=== PATIENT | female | born 1935 | race Caucasian/White ===

== ENCOUNTER → 2016-08-05 | Outpatient (CLI) | payer MEDICARE ==
[~2016-08-05] MED LIST: ALEVE; AMLO5TAB5 PO; ATEN50TA PO; ATENOLOL; Amlodipine Besylate PO; CEPH-38 PO; CHOL100048 PO; CRB200T PO; CYAN10006 PO; FEXO180T84 PO; GABA-486 PO; HYDR-3812 PO; KRIL1CAP PO; LEVO50TA PO; LEVOTHYROXIN; LISI1TAB8 PO; MECL-124 PO; MULT-974 PO; NAPR220T76 PO; PANT40TA3 PO; PNT40TEC PO; Sucralfate PO; TRAM50TA2 PO; [UNRECOGNIZED DRUG - OTHER]; [UNRECOGNIZED DRUG - OTHER]; [UNRECOGNIZED DRUG - OTHER]
--- OUTSIDE RECORDS SUMMARY | 2016-08-05 09:08 | XMS REPORT | Continuity of Care Document ---
Author Author [facility] Organization [facility] Address Unknown Phone Unavailable Care Team Providers Care Medical Assistant Supervisor Name Role Phone SHALINI HUIZAR MD PCP Insurance Providers Payer Name Policy Number Subscriber Name Relationship Wps Medicare [id number] Lisa Ramos 19 Self / Same As Patient Blue Cross [facility] Supp [id number] Lisa Ramos 19 Self / Same As Patient Advance Directives Directive Response Recorded Date/Time Advance Directives Yes 12/16/15 10:28am Health Care Power of Production Miner Yes 12/16/15 10:28am Organ Donor No 12/16/15 [...] Reaction Status Last Updated Sulfa (Sulfonamide Antibiotics) ([id number]) Allergy Unknown Active Erythromycin base Allergy Unknown [...] 3.00 inches 12/16/2015 10:28am Height (Calculated Centimeters) 160.066012 cm 12/16/2015 10:28am Weight (Pounds) 186 pounds 12/16/2015 10:28am Weight (Ounces) 2.0 oz 12/16/2015 10:28am Weight (Calculated Grams) 06207.881 gm 12/16/2015 10:28am Weight (Calculated Kilograms) 84.723120 kilograms 12/16/2015 10:28am Calculated BMI 30.95 12/16/2015 10:28am Results No known relevant diagnostic tests, laboratory data and/or discharge summary. Procedures No known history of procedures. Encounters Encounter Location Arrival/Admit Date Discharge/Depart Date Attending Provider Registered Clinic [facility] 12/16/15 10:23am GERMÁN INFANTE MD
--- NOTE | 2016-08-05 11:56 | Diagnostic Imaging Report ---
Three views of the lumbar spine. INDICATION: Back pain. FINDINGS: There is a prominent lordotic curvature in the lumbar spine. There is grade 1 spondylolisthesis of L5 over S1. The vertebral body heights are preserved. There is moderate disc height loss at L3-L4 and severe disc height loss at the L4-L5 levels. Reactive endplate sclerotic changes and minimal anterior osteophytes are noted. No significant posterior osteophytes seen. There are sclerotic degenerative changes in the mid and lower lumbar spine facet joints. Surgical clips projecting anteriorly in the abdomen seen. IMPRESSION: Lower lumbar spine disc and facet degenerative changes. Dictated by: Dictated on workstation # [id number]
--- NOTE | 2016-08-05 12:02 | Diagnostic Imaging Report ---
Two views of the cervical spine. INDICATION: Neck pain. FINDINGS: There is straightening of the lordotic curvature of the cervical spine. The vertebral body heights are preserved. There is oupt-gp-yhxrizje disc height loss at all cervical spine levels. Slightly prominent posterior osteophytes at C4-C5 seen. Minimal posterior osteophytes at C5-C6. The alignment of the lateral masses of C1 and C2 appears satisfactory. There is suggestion of mild facet degenerative changes. The prevertebral soft tissues appear grossly unremarkable. IMPRESSION: Disc and facet degenerative changes seen. Dictated by: Dictated on workstation # [id number]
--- NOTE | 2016-08-05 12:23 | Diagnostic Imaging Report ---
Three views of the thoracic spine. INDICATION: Back pain. FINDINGS: The alignment of the posterior spinal line is satisfactory. The vertebral body heights appear preserved. There are multilevel mid thoracic spine anterior osteophytes and endplate sclerotic changes. No posterior osteophyte is identified. Thoracic aortic calcifications and ectasia seen and upper abdominal surgical sutures and retention clips noted. IMPRESSION: Mild degenerative changes. Dictated by: Dictated on workstation # [id number]
== END ==
LOC: RAD 09:03
PROVIDERS: ATTEND Pain Medicine Pain Medicine
DX: M54.2 Cervicalgia (principal); M54.6 Pain in thoracic spine; M54.5 Low back pain
CPT/HCPCS: 72040; 72072; 72100

== ENCOUNTER 2016-08-20 08:53 | Outpatient (RCR) | payer MEDICARE ==
--- OUTSIDE RECORDS SUMMARY | 2016-07-21 12:57 | XMS REPORT | Continuity of Care Document ---
Author Author [facility] Organization [facility] Address Unknown Phone Unavailable Care Team Providers Care Cannoneer Name Role Phone SHALINI HUIZAR MD PCP Insurance Providers Payer Name Policy Number Subscriber Name Relationship Wps Medicare [id number] Lisa Ramos 19 Self / Same As Patient Blue Cross [facility] Supp [id number] Lisa Ramos 19 Self / Same As Patient Advance Directives Directive Response Recorded Date/Time Advance Directives Yes 12/16/15 10:28am Health Care Power of Canvas Baster Jumpbasting Yes 12/16/15 10:28am Organ Donor No 12/16/15 10:28am Resuscitation Status Full Code 12/16/15 10:28am Problems Active Problems Medical Problem Onset Date Status Anemia Unknown Acute HTN (hypertension) Unknown Acute Hypertensive urgency Unknown Acute Hypertensive urgency Unknown Acute Hypertensive urgency Unknown Acute Symptomatic sinus bradycardia Unknown Acute Vertigo Unknown Acute Medications Current Home Medications Medication Dose Units Route Directions Days/Qty Instructions Start Date Levothyroxine Sodium 50 Mcg 50 Mcg Oral Daily 07/04/14 Multivitamin 1 Each 1 Tab Oral Daily 07/04/14 Cyanocobalamin 1,000 Mcg 1,000 Mcg Oral Daily 07/04/14 Amlodipine Besylate 5 Mg 5 Mg Oral Daily 07/20/14 Krill/Om3/Dha/Epa/Om6/Lip/Astx 1 Each 1,000 Mg Oral Daily 07/20/14 Pantoprazole Sodium 40 Mg 40 Mg Oral Twice A Day 12/16/15 Gabapentin 100 Mg 100 Mg Oral Twice A Day 12/16/15 Cholecalciferol (Vitamin D3) 1,000 Unit 1,000 Unit Oral Daily Past Home Medications Medication Directions Ordered Status [Atenolol] , 04/06/10 Discontinued [Linsinpril] , 04/06/10 Discontinued Carbamazepine 200 Mg Tablet, 200 Mg Oral Twice A Day as needed for Neuralgia 04/06/10 Discontinued [Premarim] , 04/06/10 Discontinued [Algera] , 04/06/10 Discontinued [Levothyroxin] , 04/06/10 Discontinued [Aleve] , 04/06/10 Discontinued Cephalexin Monohydrate 500 Mg Capsule, 1 Each Oral Three Times A Day Discontinued Lisinopril/Hydrochlorothiazide 1 Tab Tablet, 1 Tab Oral Daily 07/04/14 Discontinued Atenolol 50 Mg Tablet, 50 Mg Oral Daily 07/04/14 Discontinued Fexofenadine Hcl 180 Mg Tablet, 180 Mg Oral Daily as needed for Allergies Discontinued Naproxen Sodium 220 Mg Tablet, 220 Mg Oral Twice A Day as needed for Pain Discontinued [Amlodipine Besylate] 5 Mg Tab, 5 Mg Oral Daily 07/06/14 Discontinued Meclizine Hcl 25 Mg Tab, 1-2 Tab Oral Q 4-6 Hours as needed for Dizziness 08/19 Discontinued Meclizine Hcl 25 Mg Tab, 25 Mg Oral Daily 07/20/14 Discontinued [Sucralfate] 1 Gm Tab, 1 Gm Oral Before Meals And At Bedtime 07/25/14 Discontinued Pantoprazole Sod 40 Mg Tab, 40 Mg Oral Bid@07,21 07/25/14 Discontinued Social History Social History Problem Response Recorded Date/Time Alcohol Use Denies Use 12/16/2015 10:28am Recreational Drug Use No 12/16/2015 10:28am Recent Foreign Travel No 12/16/2015 10:28am Recent Infectious Disease Exposure No 12/16/2015 10:28am Hospitalization with Isolation Denies 12/16/2015 10:28am Smoking Status Never a Smoker 12/16/2015 10:41am Do you dip or chew tobacco? No 01/29/2015 12:16pm Query Response Start Date Stop Date Smoking Status Never a Smoker Hospital Discharge Instructions No hospital discharge instructions. Plan of Care Discharge Date 12/16/15 10:54am Prescriptions See Medication Section Functional Status No functional status results. Allergies, Adverse Reactions, Alerts Allergen Type Severity Reaction Status Last Updated Sulfa (Sulfonamide Antibiotics) ([id number]) Allergy Unknown Active Erythromycin base Allergy Unknown Active 07/03/14 Immunizations Name Given Type Date of Pneumonia Vaccine 01/30/13 Historical Date of Influenza Vaccine 04/09/14 Historical Hepatitis B No Historical Tetanus Booster (TDap) Unknown Historical Vital Signs Acute Vital Signs Vital Response Date/Time Pulse Rate (adult) 72 bpm (60 - 90) 12/16/2015 10:28am O2 Sat by Pulse Oximetry 99 % (88 - 100) 12/16/2015 10:28am Blood Pressure 169/92 mm Hg 12/16/2015 10:28am Height (Feet) 5 feet 12/16/2015 10:28am Height (Inches) 3.00 inches 12/16/2015 10:28am Height (Calculated Centimeters) 160.741162 cm 12/16/2015 10:28am Weight (Pounds) 186 pounds 12/16/2015 10:28am Weight (Ounces) 2.0 oz 12/16/2015 10:28am Weight (Calculated Grams) 33640.881 gm 12/16/2015 10:28am Weight (Calculated Kilograms) 84.925574 kilograms 12/16/2015 10:28am Calculated BMI 30.95 12/16/2015 10:28am Results No known relevant diagnostic tests, laboratory data and/or discharge summary. Procedures No known history of procedures. Encounters Encounter Location Arrival/Admit Date Discharge/Depart Date Attending Provider Registered Clinic [facility] 12/16/15 10:23am GERMÁN INFANTE MD
[~2016-08-20 08:53] MED LIST changes: -HYDR-3812 PO
[2016-08-24] MEDS ORDERED: HYDR-3812 PO (09:37)
== END 2016-08-25 15:10 | disposition home or self-care (01) ==
PROVIDERS: ATTEND Pain Medicine Pain Medicine
DX: M54.5 Low back pain (principal); M54.6 Pain in thoracic spine; M54.2 Cervicalgia

== ENCOUNTER 2016-08-24 08:10 | Emergency (ER) | payer MEDICARE ==
[~2016-08-24] VITALS: Ht 160 cm; Wt 83.0 kg
--- OUTSIDE RECORDS SUMMARY | 2016-08-24 08:16 | XMS REPORT | Continuity of Care Document ---
Author Author [facility] Organization [facility] Address Unknown Phone Unavailable Care Team Providers Care Repairer Handtools Name Role Phone SHALINI HUIZAR MD PCP Insurance Providers Payer Name Policy Number Subscriber Name Relationship Wps Medicare [id number] Lisa Ramos 19 Self / Same As Patient Blue Cross [facility] Supp [id number] Lisa Ramos 19 Self / Same As Patient Advance Directives Directive Response Recorded Date/Time Advance Directives Yes 12/16/15 10:28am Health Care Power of Communications Intern Yes 12/16/15 10:28am Organ Donor No 12/16/15 [...] Reaction Status Last Updated Sulfa (Sulfonamide Antibiotics) ([id number]) Allergy Unknown Active Erythromycin base Allergy Unknown [...] 3.00 inches 12/16/2015 10:28am Height (Calculated Centimeters) 160.830796 cm 12/16/2015 10:28am Weight (Pounds) 186 pounds 12/16/2015 10:28am Weight (Ounces) 2.0 oz 12/16/2015 10:28am Weight (Calculated Grams) 01780.881 gm 12/16/2015 10:28am Weight (Calculated Kilograms) 84.304285 kilograms 12/16/2015 10:28am Calculated BMI 30.95 12/16/2015 10:28am Results No known relevant diagnostic tests, laboratory data and/or discharge summary. Procedures No known history of procedures. Encounters Encounter Location Arrival/Admit Date Discharge/Depart Date Attending Provider Registered Clinic [facility] 12/16/15 10:23am GERMÁN INFANTE MD
--- NOTE | 2016-08-24 08:36 | ED Fall/Injury ---
General Chief Complaint: Trauma-Non Activation Stated Complaint: FALL R LEG INJ Nursing Triage Note: PT STATES SLIPPED IN MUD, FELL ON BUTTOCKS CO OF R ANKLE,RKNEE AND R HIP PAIN. DENIES LOC OR HITTING HEAD STATES LANDED BUTT Source: patient History of Present Illness Time seen by provider: 08:23 Initial Comments PT STATES SHE SLIPPED IN THE MUD AND FELL, LANDING ON RIGHT SIDE OCCURRED AT HOME JUST PRIOR TO ARRIVAL DID NOT HIT HEAD AND NO LOSS OF CONSCIOUSNESS C/O PAIN TO ENTIRE RIGHT LEG, BUT MOST PAIN IS IN RIGHT ANKLE--STATES SHE FELT SOMETHING SNAP IN HER ANKLE. ALSO C/O PAIN IN RIGHT HIP AND KNEE NO NECK PAIN STATES SHE HAS CHRONIC BACK PAIN AND IS CURRENTLY GETTING PHYSICAL THERAPY FOR IT, BUT IT DOES NOT HURT NOW NO PRIOR INJURIES TO RIGHT LEG NO PARESTHESIAS OR MOTOR DEFICITS NO OTHER INJURIES OR PAIN Location Injury Occurred: HOME PCP: DR. HUIZAR Allergies and Home Medications Allergies Coded Allergies: Sulfa (Sulfonamide Antibiotics) (Unverified Allergy, Unknown, 07/03/14) erythromycin base (Unverified Allergy, Unknown, 07/03/14) Home Medications Amlodipine Besylate 5 Mg Tablet 5 MG PO DAILY (Reported) Cholecalciferol (Vitamin D3) 1,000 Unit Capsule 1,000 UNIT PO DAILY (Reported) Cyanocobalamin 1,000 Mcg Tablet 1,000 MCG PO DAILY (Reported) Gabapentin 100 Mg Capsule 100 MG PO BID (Reported) Hydrocodone/Acetaminophen 1 Each Tablet #20 0.5-1 EACH PO Q4H Prescribed by: NICOL WELSH on 08/24/16 0937 Krill/Om3/Dha/Epa/Om6/Lip/Astx 1 Each Capsule 1,000 MG PO DAILY (Reported) Levothyroxine Sodium 50 Mcg Tablet 50 MCG PO DAILY (Reported) Multivitamin 1 Each Tablet 1 TAB PO DAILY (Reported) Pantoprazole Sodium 40 Mg Tablet.dr 40 MG PO BID (Reported) Constitutional: no symptoms reported Eyes: No Symptoms Reported Ears, Nose, Mouth, Throat: no symptoms reported Respiratory: no symptoms reported Cardiovascular: no symptoms reported Gastrointestinal: no symptoms reported Genitourinary: no symptoms reported Musculoskeletal: see HPI Skin: no symptoms reported Psychiatric/Neurological: No Symptoms Reported Past Huwtnqs-Haoxfq-Xyalqx Hx Patient Social History Alcohol Use: Denies Use Recreational Drug Use: No Smoking Status: Never a Smoker Recent Foreign Travel: No Contact w/Someone Who Travel: No Recent Hopitalizations: No Immunizations Up To Date Tetanus Booster (TDap): Unknown Date of Pneumonia Vaccine: Jan 30, 2013 Date of Influenza Vaccine: Apr 09, 2014 Surgeries HX Surgeries: Yes (right wrist ganglion cyst, "CARMEN SHUNT"-- FORM OF GASTRIC BYPASS; CATARACTS) Surgeries: Abdominal, Appendectomy, Eye Surgery, Gallbladder, Hysterectomy, Orthopedic Respiratory Hx Respiratory Disorders: Yes (ASTHMA) Respiratory Disorders: Asthma Cardiovascular Hx Cardiac Disorders: Yes Cardiac Disorders: Hypertension Neurological Hx 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 Reproductive System ESCROW OFFICER History: Hysterectomy, Menopausal Genitourinary Hx Genitourinary Disorders: No (incontinence) Gastrointestinal Hx Gastrointestinal Disorders: Yes Gastrointestinal Disorders: Gastroesophageal Reflux, Ulcer Musculoskeletal Hx Musculoskeletal Disorders: Yes Musculoskeletal Disorders: Arthritis, Chronic Back Pain Endocrine Hx Endocrine Disorders: Yes Endocrine Disorders: Hypothyroidsim HEENT HX ENT Disorders: Yes (cataracts removed) HEENT Disorders: Cataract Cancer Hx Cancer: No Psychosocial Hx Psychiatric Problems: Yes Behavioral Health Disorders: Sleep Difficulties Integumentary HX Skin/Integumentary Disorder: Yes (skin lesion) Blood Transfusions Hx Blood Disorders: No Adverse Reaction to a Blood Tr: No Family Medical History Family Medial History: Abdominal aortic aneurysm Arthritis Cataracts Completed stroke Diabetes mellitus Hypertension Myocardial infarction Prostate cancer Respiratory disorder Thyroid disease Visual disorder No Family History of: AIDS Cy's disease Alcoholism Alzheimer's disease Aphasia Asthma Cancer of mouth Cardiovascular disease Colon cancer Congenital disease Congenital heart disease Coronary thrombosis Cystic fibrosis Deafness or hearing loss Dementia Drug abuse Dysphasia Fibrocystic disease of breast Gastroenteritis Glaucoma Headache disorder Hypercholesterolemia Infertility Kidney disease Neoplasm Not obtainable due to adoption Osteoporosis Parkinson's disease Psychosocial problem Seizure disorder Severe allergy Tuberculosis Physical Exam Vital Signs Vital Sign - Last 12Hours 08/24/16 08:15 Temp 98.5 Pulse 72 Resp 20 B/P 173/82 Pulse Ox 100 Capillary Refill : Less Than 3 Seconds General Appearance: WD/WN no apparent distress HEENT: PERRL/EOMI Neck: non-tender full range of motion supple normal inspection Cardiovascular: normal peripheral pulses regular rate, rhythm systolic murmur (08/10) Respiratory: chest non-tender normal breath sounds no respiratory distress no accessory muscle use Peripheral Pulses: 2+ Dorsalis Pedis (R), 2+ Left Dors-Pedis (L) Gastrointestinal: non tender soft Back: normal inspection no CVA tenderness no vertebral tenderness Extremities: other (MILD SWELLING AND MINOR ABRASION WITH SIGNIFICANT TENDERNESS TO RIGHT LATERAL MALLEOLUS; MODERATE TENDERNESS TO RIGHT HIP AND KNEE WITH MILD TENDERNESS TO THIGH AND TIB-FIB AREAS. NO DEFORMITY. DISTAL MOTOR /SENSORY/VASCULAR INTACT. 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 no motor/sensory deficits alert normal mood/affect oriented x 3 Skin: normal color warm/dry Michael Coma Score Best Eye Response: (4) Open Spontaneously Best Verbal Response: (5) Oriented Best Motor Response: (6) Obeys Commands [place] Total: 15 Splinting and Joint Reduction : Immobilizers: Step Light Walker s/m/lg Progress/Results/Core Measures Results/Orders My Orders Orders-NICOL WELSH DO Femur, Right, 2 Views (08/24/16 08:29) Tibia/Fibula, Right, 2 Views (08/24/16 08:29) Knee, Right, 3 Views (08/24/16 08:29) Foot, Right, 3 View (08/24/16 08:29) Ankle, Right, 3 Views (08/24/16 08:29) Pelvis (08/24/16 08:29) Hip, Right, 2 Views (08/24/16 08:29) Flavio Bandage (08/24/16 09:27) Steplite (08/24/16 09:27) Vital Signs/I&O Vital Sign - Last 12Hours 08/24/16 08:15 Temp 98.5 Pulse 72 Resp 20 B/P 173/82 Pulse Ox 100 Progress Note : Progress Note PT HAS A WHEELCHAIR AT HOME. Diagnostic Imaging Comments XRAYS ENTIRE RIGHT LEG AND PELVIS--NON-DISPLACED VERTICAL FRACTURE THROUGH MEDIAL MALLEOLUS, OTHERWISE NO OTHER FRACTURES NOTED--PER RADIOLOGIST REPORTS @ 0924 Reviewed: Reviewed by Me Departure Impression Impression: Primary Impression: Status post fall Additional Impression: Closed fracture of medial malleolus of right ankle Disposition: 01 HOME, SELF-CARE Condition: Stable Departure-Patient Inst. Referrals: SHALINI HUIZAR MD (PCP/Family) Primary Care Physician TEJ BUENO DO Patient Instructions: Ankle Fracture (DC), Preventing Falls in the Older Adult Add. Discharge Instructions: FLAVIO WRAP AND BOOT AT ALL TIMES USE WHEELCHAIR AT ALL TIMES0--NO WEIGHT BEARING UNTIL CLEARED BY ORTHOPEDIC SURGEON FOLLOW UP WITH DR. BUENO OF [facility] STATES THIS WEEK FOR FURTHER CARE All discharge instructions reviewed with patient and/or family. Voiced understanding. Scripts Hydrocodone/Acetaminophen (Hydrocodon -Acetaminophen 5-325)1 Each Tablet0.5-1 Each PO Q4H #20 TAB Prov:NICOL WELSH DO 08/24/16 NICOL WELSH DO Aug 24, 2016 08:36
--- NOTE | 2016-08-24 09:08 | Diagnostic Imaging Report ---
INDICATION: Right hip injury from a fall. 2 views of the right hip show no fracture or dislocation. IMPRESSION: Negative right hip. Dictated by: Dictated on workstation # [id number]
--- NOTE | 2016-08-24 09:09 | Diagnostic Imaging Report ---
INDICATION: Right ankle injury There is a nondisplaced vertical fracture through the medial malleolus. The lateral malleolus appears to be grossly intact. IMPRESSION: Nondisplaced vertical fracture through the medial malleolus. Dictated by: Dictated on workstation # [id number]
--- NOTE | 2016-08-24 09:09 | Diagnostic Imaging Report ---
INDICATION: Right lower leg pain AP and lateral views of right tibia fibula show a nondisplaced fracture through the medial malleolus. The proximal tibia is intact. The fibula appears intact. IMPRESSION: Nondisplaced medial malleolus fracture. Dictated by: Dictated on workstation # [id number]
--- NOTE | 2016-08-24 09:09 | Diagnostic Imaging Report ---
INDICATION: Right hip pain from a fall AP view pelvis shows no fracture or dislocation. IMPRESSION: Negative pelvis. Dictated by: Dictated on workstation # [id number]
--- NOTE | 2016-08-24 09:09 | Diagnostic Imaging Report ---
INDICATION: Right knee pain 3 views of the right knee show no fracture, dislocation or pathologic effusion. IMPRESSION: Negative right knee. Dictated by: Dictated on workstation # [id number]
--- NOTE | 2016-08-24 09:10 | Diagnostic Imaging Report ---
INDICATION: Right foot pain 3 views of the right foot show no fracture, dislocation or other acute abnormalities. IMPRESSION: Negative right foot. Dictated by: Dictated on workstation # [id number]
--- NOTE | 2016-08-24 09:10 | Diagnostic Imaging Report ---
INDICATION: Right leg pain AP and lateral views of the right femur show no fracture or dislocation. IMPRESSION: Negative right femur Dictated by: Dictated on workstation # [id number]
[2016-08-24] MEDS ORDERED: HYDR-3812 PO (09:37)
[2016-08-24 09:53] VITALS: BP 177/79
== END 2016-08-24 09:53 | disposition home or self-care (01) ==
LOC: EDUNIT# 08:10 → ER 08:12
DX: S82.54XA Nondisplaced fracture of medial malleolus of right tibia, initial encounter for closed fracture (principal); S70.01XA Contusion of right hip, initial encounter; S80.01XA Contusion of right knee, initial encounter; I10 Essential (primary) hypertension; Z79.899 Other long term (current) drug therapy; W01.0XXA Fall on same level from slipping, tripping and stumbling without subsequent striking against object, initial encounter; Y92.017 Garden or yard in single-family (private) house as the place of occurrence of the external cause; Y99.8 Other external cause status
CPT/HCPCS: 72170; 73502; 73552; 73562; 73590; 73610; 73630; 99283

== ENCOUNTER → 2016-09-17 | Outpatient (CLI) | payer MEDICARE ==
[~2016-09-17] MED LIST changes: +HYDR-3812 PO
--- OUTSIDE RECORDS SUMMARY | 2016-09-17 09:36 | XMS REPORT | Continuity of Care Document ---
Author Author [facility] Organization [facility] Address Unknown Phone Unavailable Care Team Providers Care Room Service Manager Name Role Phone SHALINI HUIZAR MD PCP Insurance Providers Payer Name Policy Number Subscriber Name Relationship Wps Medicare [id number] Lisa Ramos 19 Self / Same As Patient Blue Cross [facility] Supp [id number] Lisa Ramos 19 Self / Same As Patient Advance Directives Directive Response Recorded Date/Time Advance Directives Yes 08/24/16 8:15am Health Care Power of Brim Welt Sewing Machine Operator Yes 08/24/16 8:15am Organ Donor No 08/24/16 8:15am Resuscitation Status Full Code 08/24/16 8:15am Chief Complaint and Reason for Visit Chief Complaint Trauma-Non Activation Reason for Visit Status post fall Closed fracture of medial malleolus of right ankle Problems Active Problems Medical Problem Onset Date Status Anemia Unknown Acute Closed fracture of medial malleolus of right ankle Unknown Acute HTN (hypertension) Unknown Acute Hypertensive urgency Unknown Acute Hypertensive urgency Unknown Acute Hypertensive urgency Unknown Acute Status post fall Unknown Acute Symptomatic sinus bradycardia Unknown Acute [...] D3) 1,000 Unit 1,000 Unit Oral Daily Hydrocodone/Acetaminophen 1 Each 0.5-1 Each Oral Every 4HRS 20 Past Home Medications Medication Directions Ordered Status [...] Tab, 40 Mg Oral Bid@07,21 07/25/14 Discontinued Tramadol Hcl 50 Mg Tablet, 50 Mg Oral Every 12 Hours as needed for Pain 12/19 Discontinued Social History Social History Problem Response Recorded Date/Time Alcohol Use Denies Use 12/20/2015 7:45am Recreational Drug Use No 12/20/2015 7:45am Recent Foreign Travel No 08/24/2016 8:15am Recent Infectious Disease Exposure No 08/24/2016 8:15am Hospitalization with Isolation Denies 08/24/2016 8:15am Smoking Status Never a Smoker 08/24/2016 8:15am Do you dip or chew tobacco? No 01/29/2015 12:16pm Recent Hopitalizations No 08/24/2016 8:15am Hospitalization with Isolation Denies 08/24/2016 8:15am Query Response Start Date Stop Date Smoking Status Never a Smoker Hospital Discharge Instructions No hospital discharge instructions. Plan of Care Discharge Date 08/24/16 9:53am Disposition 01 HOME, SELF-CARE Condition at Discharge Stable Instructions/Education Provided Preventing Falls in the Older Adult Ankle Fracture (DC) Prescriptions See Medication Section Referrals SHALINI HUIZAR MD - Primary Care Physician SHALINI HUIZAR MD - Primary Care Physician TEJ BUENO DO - Additional Instructions/Education THOMAS WRAP AND BOOT AT ALL TIMES USE WHEELCHAIR AT ALL TIMES0--NO WEIGHT BEARING UNTIL CLEARED BY ORTHOPEDIC SURGEON FOLLOW UP WITH DR. BUENO OF [facility] STATES THIS WEEK FOR FURTHER CARE All discharge instructions reviewed with patient and/or family. Voiced understanding. Functional Status No functional status results. Allergies, Adverse Reactions, Alerts Allergen Type Severity Reaction Status Last Updated Sulfa (Sulfonamide Antibiotics) ([id number]) Allergy Unknown Active Erythromycin base Allergy Unknown Active 07/03/14 Immunizations No immunization records. Vital Signs Acute Vital Signs Vital Response Date/Time Temperature (Fahrenheit) 98.5 degrees F (97.6 - 99.5) 08/24/2016 8:15am Temperature (Calculated Celsius) 36.78231 degrees C (36.4 - 37.5) 08/24/2016 8:15am Pulse Rate (adult) 72 bpm (60 - 90) 08/24/2016 8:15am Respiratory Rate 20 bpm (12 - 24) 08/24/2016 8:15am O2 Sat by Pulse Oximetry 100 % (88 - 100) 08/24/2016 8:15am Blood Pressure 173/82 mm Hg 08/24/2016 8:15am Blood Pressure Mean 112 mm Hg 08/24/2016 8:15am Pain Numeric Pain Scale 7 08/24/2016 8:15am Height (Feet) 5 feet 08/24/2016 8:15am Height (Inches) 3 inches 08/24/2016 8:15am Height (Calculated Centimeters) 160.439282 cm 08/24/2016 8:15am Weight (Pounds) 183 pounds 08/24/2016 8:15am Weight (Calculated Kilograms) 83.483709 kilograms 08/24/2016 8:15am Capillary Refill Capillary Refill Less Than 3 Seconds 08/24/2016 8:15am Height 5 ft 3 in Weight 183 lb Body Mass Index 32.4 kg/m^2 Results No known relevant diagnostic tests, laboratory data and/or discharge summary. Procedures No known history of procedures. Encounters Encounter Location Arrival/Admit Date Discharge/Depart Date Attending Provider Registered Emergency Room [facility] 08/24/16 8:12am NICOL WELSH DO Registered Recurring [facility] 08/20/16 8:53am KIKA WEAVER MD Registered Clinic [facility] 08/05/16 9:03am KIKA WEAVER MD Recent Diagnosis
--- NOTE | 2016-09-18 18:29 | Diagnostic Imaging Report ---
Bilateral screening mammogram The current study was also evaluated with a Computer Aided Detection (CAD) system. Indication: Screening. No current complaints stated on the questionnaire. COMPARISON: 09/17/15. FINDINGS: The breasts are composed of scattered fibroglandular densities. There are occasional benign-appearing calcifications. Allowing for technique and positional differences, no suspicious change is seen. IMPRESSION: No significant change. ACR BI-RADS Category 2: Benign findings. Result letter will be mailed to the patient. Note: At least 10% of breast cancer is not imaged by mammography. Dictated by: Dictated on workstation # [id number]
== END ==
LOC: RAD 09:33
PROVIDERS: ATTEND Internal Medicine
DX: Z12.31 Encounter for screening mammogram for malignant neoplasm of breast (principal)
CPT/HCPCS: 77067

== ENCOUNTER → 2016-10-14 | Outpatient (CLI) | payer MEDICARE ==
--- NOTE | 2016-10-14 14:14 | Diagnostic Imaging Report ---
INDICATION: Difficulty breathing, cough. EXAMINATION: PA and lateral chest. FINDINGS: Heart size and pulmonary vascularity are normal. Lungs are clear. There are no effusions or pneumothoraces. IMPRESSION: Negative chest. Dictated by: Dictated on workstation # [id number]
== END ==
LOC: RAD 13:42
PROVIDERS: ATTEND Internal Medicine
DX: J44.9 Chronic obstructive pulmonary disease, unspecified (principal); R05 Cough
CPT/HCPCS: 71020

== ENCOUNTER 2016-11-05 13:34 | Outpatient (RCR) | payer MEDICARE | END 2016-12-10 09:26 | disposition home or self-care (01) | PROVIDERS: ATTEND Pain Medicine Pain Medicine | DX: M54.5 Low back pain (principal); M54.2 Cervicalgia ==

== ENCOUNTER → 2016-11-18 | Outpatient (CLI) | payer MEDICARE | LOC: RT 09:42 | PROVIDERS: ATTEND Internal Medicine Critical Care Medicine | DX: J45.909 Unspecified asthma, uncomplicated (principal); J44.9 Chronic obstructive pulmonary disease, unspecified | CPT/HCPCS: 94060; 94726; 94729 ==

== ENCOUNTER 2017-04-01 09:00 | Outpatient (RCR) | payer MEDICARE | END 2017-04-03 | disposition home or self-care (01) | LOC: PULM 09:00 | PROVIDERS: ATTEND Internal Medicine Critical Care Medicine | DX: J45.909 Unspecified asthma, uncomplicated (principal); J44.9 Chronic obstructive pulmonary disease, unspecified | CPT/HCPCS: 99211 ==

== ENCOUNTER 2017-06-10 09:00 | Outpatient (RCR) | payer MEDICARE ==
[~2017-06-10 09:00] MED LIST changes: +ACHD5005 PO; -HYDR-3812 PO
== END 2017-07-05 | disposition home or self-care (01) ==
LOC: PULM 09:00
PROVIDERS: ATTEND Internal Medicine Critical Care Medicine
DX: J45.909 Unspecified asthma, uncomplicated (principal); J44.9 Chronic obstructive pulmonary disease, unspecified

== ENCOUNTER → 2017-06-21 | Outpatient (CLI) | payer MEDICARE ==
[~2017-06-21] MED LIST changes: -ACHD5005 PO; +HYDR-3812 PO
--- NOTE | 2017-06-21 17:24 | Diagnostic Imaging Report ---
INDICATION: Shortness of breath x4 days EXAM: PA and lateral chest. FINDINGS: Heart size and pulmonary vascularity are normal. The lungs are clear. There are no effusions or pneumothoraces. IMPRESSION: Negative chest. Dictated by: Dictated on workstation # [id number]
== END ==
LOC: RAD 16:45
PROVIDERS: ATTEND Nurse Practitioner
DX: R06.02 Shortness of breath (principal)
CPT/HCPCS: 71020

== ENCOUNTER → 2017-09-09 | Outpatient (CLI) | payer MEDICARE ==
[~2017-09-09] MED LIST changes: +ACHD5005 PO; -HYDR-3812 PO
--- NOTE | 2017-09-09 20:04 | Diagnostic Imaging Report ---
INDICATION: Routine screening. The current study was also evaluated with a Computer Aided Detection (CAD) system. Comparison is made with prior studies from 09/17/2016 and 09/17/2015. FINDINGS: Both breasts are primarily involutional. The parenchymal pattern is stable. No dominant mass or malignant-appearing microcalcifications are seen. There are benign-appearing parenchymal and vascular calcifications bilaterally. The axillae are unremarkable. IMPRESSION: No mammographic features suspicious for malignancy are identified. ACR BI-RADS Category 2: Benign findings. Result letter will be mailed to the patient. Note: At least 10% of breast cancer is not imaged by mammography. Dictated by: Dictated on workstation # [id number]
== END ==
LOC: RAD 12:00
PROVIDERS: ATTEND Nurse Practitioner
DX: Z12.31 Encounter for screening mammogram for malignant neoplasm of breast (principal)
CPT/HCPCS: 77067

== ENCOUNTER → 2018-09-28 | Outpatient (CLI) | payer MEDICARE ==
--- NOTE | 2018-09-28 18:03 | Diagnostic Imaging Report ---
INDICATION: Routine screening. COMPARISON: Comparison is made with prior mammograms from 09/09/2017 and 09/17/2016. TECHNIQUE: 2D and 3D bilateral screening mammography was performed with computer-aided detection (CAD) system. FINDINGS: Scattered fibroglandular densities are identified bilaterally. The parenchymal pattern appears stable. No dominant mass or malignant appearing microcalcifications are seen. Benign parenchymal and vascular calcifications are noted bilaterally. The axillae are unremarkable. IMPRESSION: No mammographic features suspicious for malignancy are identified. ACR BI-RADS Category 2: Benign findings. Result letter will be mailed to the patient. Note: At least 10% of breast cancer is not imaged by mammography. Dictated by: Dictated on workstation # [id number]
== END ==
LOC: RAD 08:43
PROVIDERS: ATTEND Internal Medicine
DX: Z12.31 Encounter for screening mammogram for malignant neoplasm of breast (principal)
CPT/HCPCS: 77067

== ENCOUNTER → 2019-05-31 | Outpatient (CLI) | payer MEDICARE ==
--- NOTE | 2019-05-31 10:52 | Diagnostic Imaging Report ---
EXAMINATION: Bilateral breast ultrasound, limited. INDICATION: Bilateral breast masses. FINDINGS: By history, the patient has palpable abnormalities in both breasts. The diagnostic mammogram performed prior to the study, however, failed to show any sign of malignancy. On this exam, there is no discrete solid or cystic mass in the region of either palpable abnormality. If clinical concern regarding a palpable abnormality persists, however, then biopsy should be considered. IMPRESSION: There is no evidence of malignancy. Recommendations as above. ACR BI-RADS Category 1: Negative. Dictated by: Dictated on workstation # [id number]
--- NOTE | 2019-05-31 11:39 | Diagnostic Imaging Report ---
D mammogram bilateral diagnostic indication bilateral breast lumps The study was compared to the prior exams of 09/28/2018 09/09/2017 and 09/17/2016. At this time the patient does complain of a lump in the 12 o'clock position of the left breast. A marker was placed over the area of concern. There is no primary or secondary sign of malignancy noted. The previous exam did reveal at there was a skin lesion in this region. I would recommend that ultrasound be performed for further study.. The patient also notes a lump in the 12 o'clock position of the right breast. This area also seems similar in appearance to the prior study. There is no primary or secondary sign of malignancy noted. Even so, ultrasound of this portion of the right breast should be obtained as well. There are scattered fibroglandular densities in both breasts which could obscure a lesion. Overall, there does not appear to been any significant change when compared to previous studies. There is no primary or secondary sign of malignancy noted. IMPRESSION: There is no Celexa. However ultrasound of both breasts were recommended for further evaluation of the palpable abnormalities. And report with ACR category 0 thank you Dictated by: Dictated on workstation # [id number]
== END ==
LOC: RAD 09:17
PROVIDERS: ATTEND Physician Assistant
DX: N63.10 Unspecified lump in the right breast, unspecified quadrant (principal); N63.20 Unspecified lump in the left breast, unspecified quadrant
CPT/HCPCS: 76642; 77066

== ENCOUNTER 2020-06-07 05:31 | Outpatient (RCR) | payer MEDICARE ==
[~2020-06-07] VITALS: Ht 160 cm; Wt 82.3 kg
[~2020-06-07 05:31] MED LIST changes: +FLUT1AER IH; +HYDR12.56 PO; +LEVO50TA6 PO; +MONT10TA97 PO; +MULT1CAP27 PO; -PANT40TA3 PO; +PANT40TA52 PO; -TRAM50TA2 PO; +TRM50T PO
[2020-06-07] MEDS ORDERED: FLUT1BLS IH (10:28)
[2020-06-07] MEDS ORDERED: CHOL10002 PO (10:28)
[2020-06-07] MEDS ORDERED: BIOT5000 PO (10:28)
[2020-06-07] MEDS ORDERED: CYAN100088 PO (10:28)
[2020-06-07] MEDS ORDERED: LISI-552 PO (10:28)
== END 2020-06-07 10:05 | disposition home or self-care (01) ==
LOC: PREOP 05:31
PROVIDERS: ATTEND Surgery
DX: Z01.812 Encounter for preprocedural laboratory examination (principal); K21.9 Gastro-esophageal reflux disease without esophagitis; K92.1 Melena; Z20.828 Contact with and (suspected) exposure to other viral communicable diseases
CPT/HCPCS: 87635

== ENCOUNTER 2020-06-11 10:14 | Day surgery (SDC) | payer MEDICARE ==
[~2020-06-11] VITALS: Ht 160 cm; Wt 82.0 kg
[2020-06-11] VITALS (8 sets, daily range): BP systolic 139–188; BP diastolic 62–82
[~2020-06-11 10:14] MED LIST changes: +BIOT5000 PO; +CHOL10002 PO; +CYAN100088 PO; +FLUT1BLS IH; +LISI-552 PO
[2020-06-11] MEDS ORDERED: LACTATED RINGERS 1,000 ML IV ONE (10:28)
[2020-06-11] MEDS ORDERED: LACTATED RINGERS 1,000 ML IV STA (10:56)
[2020-06-11] MEDS ORDERED: HURRICAINE EXT TUBE (BENZOCAINE) XX PRN (11:00)
--- NOTE | 2020-06-11 11:50 | Progress Note-Pre Operative ---
Pre-Operative Progress Note H&P Reviewed The H&P was reviewed, patient examined and no changes noted. Date Seen by Provider: Jun 11, 2020 Time Seen by Provider: 11:50 Date H&P Reviewed: Jun 11, 2020 Time H&P Reviewed: 11:50 Pre-Operative Diagnosis: blood in stool, gerd CHARLIE RAMIREZ DO Jun 11, 2020 11:50
[2020-06-11] MEDS ORDERED: PROPOFOL INJECTION 50 ML IV ONE (12:30)
[2020-06-11] MEDS ORDERED: LABETALOL HCL 20 MG/4 ML VIAL ONE (13:15)
--- NOTE | 2020-06-11 13:53 | Anesthesia-General Post-Op ---
MAC Patient Condition Mental Status/LOC: Same as Preop Cardiovascular: Satisfactory Nausea/Vomiting: Absent Respiratory: Satisfactory Pain: Controlled Complications: Absent Post Op Complications Complications None Follow Up Care/Instructions Patient Instructions None needed. Anesthesiology Discharge Order Discharge Order Patient is doing well, no complaints, stable vital signs, no apparent adverse anesthesia problems. No complications reported per nursing. CASPER TORRES CRNA Jun 11, 2020 13:53
--- NOTE | 2020-06-11 13:55 | Progress Note-Post Operative ---
Post-Operative Progess Note Surgeon (s)/Manager Security And Safety (s) Surgeon CHARLIE RAMIREZ DO Manager Security And Safety: na Pre-Operative Diagnosis blood in stool, gerd Post-Operative Diagnosis lissy shunt, reactive gastropathy, small hiatal hernia, colon polyp x 3 Procedure & Operative Findings Date of Procedure 06/11/20 Procedure Performed/Findings egd c biopsy antrum, colonoscopy hot bx polypectomyx 2 and snare polypectomy x 1 Anesthesia Type per dust collector Estimated Blood Loss Estimated blood loss (mL): none Specimens/Packing Specimens Removed antrum, colon polyps CHARLIE RAMIREZ DO Jun 11, 2020 13:55
--- NOTE | 2020-06-11 13:56 | Discharge Inst-Simple/Standard ---
Discharge Inst-Standard Patient Instructions/Follow Up Plan of Care/Instructions/FU: 2-3 weeks courtney Activity as Tolerated: Yes Discharge Diet: Regular Diet CHARLIE RAMIREZ DO Jun 11, 2020 13:56
--- NOTE | 2020-06-12 00:58 | OPERATIVE REPORT ---
DATE OF SERVICE: 06/11/2020 PREOPERATIVE DIAGNOSES: Blood in stool, gastroesophageal reflux disease. POSTOPERATIVE DIAGNOSES: History [place] shunt, reactive gastropathy, small hiatal hernia, colon polyp x3. PROCEDURE: Esophagogastroduodenoscopy with biopsy of antrum, colonoscopy with hot biopsy polypectomy x2 and snare polypectomy x1. SURGEON: Charlie Lazaro DO ANESTHESIA: Per ADMINISTRATIVE OPERATIONS COORDINATOR. ESTIMATED BLOOD LOSS: None. COMPLICATIONS: None. INDICATIONS: The patient is an 85-year-old female with blood in her stool. She has had gastroesophageal reflux symptoms. She understands risks and benefits of procedure and wished to proceed with procedure. Consent was signed in the chart. DESCRIPTION OF PROCEDURE: The patient was taken to the endoscopy suite, placed in left lateral recumbent position. Timeout was performed. Scope was inserted in mouth, down the esophagus, stomach and down to the bypass, small bowel limb. No evidence of any polyps, masses or ulcerations. Scope was slowly retracted back into the stomach and noting the anastomosis to the small bowel and then also noting an opening then continued into the stomach, which the scope was able to be passed continued down the stomach along the lesser curvature and through the pylorus. There were no polyps, masses or ulcerations within the duodenum. Scope was back into the stomach where it was further insufflated. Evidence of reactive gastropathy was present. Biopsy of the antrum was obtained. Scope was then slowly retracted back into the pouch area where scope was also retroflexed noting the appearance of a small hiatal hernia. The scope was returned to its normal position, slowly withdrawn to distal esophagus, which had normal appearance. No polyps, masses or ulcerations. Scope was slowly retracted back until completely removed noting no other pathology. Digital rectal exam was performed noting some hemorrhoidal disease. No palpable polyps, masses or ulcerations. Scope was inserted in the rectum, advanced all the way to cecum with minimal difficulty. There are no polyps, masses or ulcerations within the cecum and ascending colon, two small polyps were present, which hot biopsy polypectomy was performed on these. Scope was then continuously slowly retracted back through the transverse with no polyps, masses or ulcerations. In the descending colon, the distal portion, there is a larger polyp under 1 cm. Snare polypectomy was performed and specimen obtained. Scope was then continuously slowly retracted back through the remainder of the descending sigmoid colon with no other pathology. Scope was retroflexed in the rectum, noting no other pathology. Scope was returned to its normal position, slowly withdrawn until completely removed, noting no other pathology except for the noted previously hemorrhoids. The patient tolerated procedure well without any complications. She was taken to recovery room in stable condition. RECOMMENDATIONS: The patient will follow up in the office in two to three weeks. We will make any changes yet at this time. No source of bleeding evident suggested that may be related to the hemorrhoids. The patient to have repeat endoscopy on as needed basis and also evaluating risks and benefits. Job ID: [id number] DocumentID: [id number] Dictated Date: 06/11/2020 14:01:12 Zoo Director Date: 06/12/2020 00:57:14 Dictated By: CHARLIE LAZARO DO
== END 2020-06-11 14:55 | disposition home or self-care (01) ==
LOC: ENDO 10:14
PROVIDERS: ATTEND Surgery
DX: D12.2 Benign neoplasm of ascending colon (principal); D12.4 Benign neoplasm of descending colon; K92.1 Melena; K21.9 Gastro-esophageal reflux disease without esophagitis; K44.9 Diaphragmatic hernia without obstruction or gangrene; K31.89 Other diseases of stomach and duodenum; J44.9 Chronic obstructive pulmonary disease, unspecified; E03.9 Hypothyroidism, unspecified; I10 Essential (primary) hypertension; J30.9 Allergic rhinitis, unspecified; Z79.899 Other long term (current) drug therapy; Z88.8 Allergy status to other drugs, medicaments and biological substances; Z88.2 Allergy status to sulfonamides; Z88.1 Allergy status to other antibiotic agents
CPT/HCPCS: 88305